=== PATIENT | female | born 1995 | race Caucasian/White ===

== ENCOUNTER 2019-05-25 22:45 | Emergency (ER) | payer SELFPAY ==
[~2019-05-25] VITALS: Wt 79.5 kg
[2019-05-25 22:59] VITALS: BP 137/78; TEMP 98.9
[2019-05-25] MEDS ORDERED: TYLENOL 500MG500 MG PO (23:38)
[2019-05-25] MEDS ORDERED: EX-LAX15 MG PO (23:39)
[2019-05-26 00:30] LABS: BASO # 0.1 (0.0-0.2); BASO % 0.4 % (0.0-2.0); EOS % 0.2 % (0-4.0); GRAN # 13.4 (1.4-6.5); GRAN % 82.5 % (42.2-75.2); HEMATOCRIT 42.6 % (37.0-47.0); HEMOGLOBIN 13.8 g/dl (12.5-16.0); LYMPH # 1.6 (1.2-3.4); LYMPH % 9.8 % (20.0-51.0); MEAN CELL VOLUME 83 fl (80.0-100.0); MEAN CORPUSCULAR HEMOGLOBIN 27 pg (27.0-31.0); MEAN CORPUSCULAR HGB CONC 32 g/dl (33.0-37.0); MEAN PLATELET VOLUME 9.2 fl (7.4-10.4); MONO # 1.1 (0.1-0.6); MONO % 6.7 % (1.7-9.3); PLATELET COUNT 381 K/mm3 (130-400); RED BLOOD COUNT 5.16 M/mm3 (4.10-5.30); REDCELL DISTRIBUTION WIDTH-CV 13.4 % (11.5-14.5)
[2019-05-26 00:42] LABS: ALBUMIN 4.5 gm/dL (3.5-5.0); BILIRUBIN,TOTAL 0.3 mg/dL (0.0-1.0); C-REACTIVE PROTEIN 3.2 mg/dL (0.0-0.9); CALCIUM 9.7 mg/dL (8.4-10.2); CREATININE, serum 0.69 (0.52-1.25); POTASSIUM 4.1 mmol/L (3.4-5.0); TOTAL PROTEIN 8.3 gm/dL (6.4-8.2)
[2019-05-26 01:18] LABS: COLLECTION METHOD CLEAN CATCH
[2019-05-26 01:26] LABS: MUCOUS Present /lpf; PH 5 (5-8); URINE APPEARANCE Cloudy; URINE BACTERIA Rare /hpf; URINE BILIRUBIN Negative (NEGATIVE); URINE BLOOD 2+ (NEGATIVE); URINE COLOR Yellow; URINE GLUCOSE Negative (NEGATIVE); URINE KETONE Negative (NEGATIVE); URINE LEUKOCYTE ESTERASE 2+ (NEGATIVE); URINE NITRATE Positive (NEGATIVE); URINE PROTEIN(semi-quant) 2+ (NEGATIVE); URINE RBC 20-50 /hpf; URINE UROBILINOGEN Negative (NEGATIVE)
[2019-05-26] MEDS ORDERED: ZOFRAN 4MG T4 MG/TAB PO (02:36)
[2019-05-26] MEDS ORDERED: CEPHALEXIN500 M1 PO (02:36)
[2019-05-26 03:40] VITALS: PULSE 101
== END 2019-05-26 03:40 | disposition home or self-care (01) ==
LOC: COL.ER 22:45
PROVIDERS: Emergency Medicine
DX: N12 Tubulo-interstitial nephritis, not specified as acute or chronic (principal); N39.0 Urinary tract infection, site not specified
CPT/HCPCS: A4216; J0696; J2765; J7030; Q9967

== ENCOUNTER 2019-10-17 17:38 | Emergency (ER) | payer BC ==
[~2019-10-17] VITALS: Ht 154.9 cm; Wt 86.4 kg
[~2019-10-17 17:38] MED LIST: CEPHALEXIN500 M1 PO; EX-LAX15 MG PO; TYLENOL 500MG500 MG PO; ZOFRAN 4MG T4 MG/TAB PO
[2019-10-17 18:10] VITALS: TEMP 98.9
[2019-10-17 18:49] LABS: BASO # 0.1 (0.0-0.2); BASO % 0.6 % (0.0-2.0); EOS # 0.1 (0.0-0.7); EOS % 1.2 % (0-4.0); GRAN # 5.5 (1.4-6.5); HEMATOCRIT 40.3 % (37.0-47.0); HEMOGLOBIN 12.8 g/dl (12.5-16.0); LYMPH # 2.6 (1.2-3.4); LYMPH % 28.9 % (20.0-51.0); MEAN CELL VOLUME 82 fl (80.0-100.0); MEAN CORPUSCULAR HEMOGLOBIN 26 pg (27.0-31.0); MEAN CORPUSCULAR HGB CONC 32 g/dl (33.0-37.0); MEAN PLATELET VOLUME 8.8 fl (7.4-10.4); MONO # 0.7 (0.1-0.6); MONO % 8.1 % (1.7-9.3); PLATELET COUNT 355 K/mm3 (130-400); RED BLOOD COUNT 4.92 M/mm3 (4.10-5.30); REDCELL DISTRIBUTION WIDTH-CV 14.2 % (11.5-14.5)
[2019-10-17 18:59] LABS: ALANINE AMINOTRANSFERASE 36 U/L (9-52); ALBUMIN 4.6 gm/dL (3.5-5.0); ALKALINE PHOSPHATASE 91 U/L (50-136); ANION GAP 9 mmol/L (7-16); AST,SGOT 38 U/L (15-37); BILIRUBIN,TOTAL 0.4 mg/dL (0.0-1.0); BLOOD UREA NITROGEN 14 mg/dL (7-17); C-REACTIVE PROTEIN 1.3 mg/dL (0.0-0.9); CALCIUM 9.8 mg/dL (8.4-10.2); CARBON DIOXIDE 27 mmol/L (22-30); CHLORIDE 103 mmol/L (98-107); CREATININE, serum 0.63 (0.52-1.25); GLUCOSE 89 mg/dL (74-106); LIPASE 81 U/L (23-300); SODIUM 140 mmol/L (137-145); TOTAL PROTEIN 8.2 gm/dL (6.4-8.2)
[2019-10-17 19:09] LABS: TROPONIN-I < 0.012 ng/mL (0.000-0.035)
[2019-10-17] MEDS ORDERED: PROTONIX 40MG T40 MG PO (19:36)
[2019-10-17 19:45] VITALS: BP 115/69; PULSE 77
== END 2019-10-17 19:45 | disposition home or self-care (01) ==
LOC: COL.ER 17:38
PROVIDERS: Emergency Medicine
DX: K21.9 Gastro-esophageal reflux disease without esophagitis (principal)